=== PATIENT | female | born 1940 | race Caucasian/White ===

== ENCOUNTER 2018-02-03 14:44 | Inpatient (IN) | payer MEDICARE ==
[~2018-02-03] VITALS: Ht 154.9 cm; Wt 45.4 kg
[2018-02-03 14:45] VITALS: BP 111/66
[2018-02-03] MEDS ORDERED: MAGOX 400400 MG PO (14:52)
[2018-02-03] MEDS ORDERED: COLESTID1 GM PO (14:52)
[2018-02-03] MEDS ORDERED: BONE HEALTH (14:52)
[2018-02-03] MEDS ORDERED: BACTRIM DS TAB1 EACH PO (14:53)
[2018-02-03] MEDS ORDERED: AMOXICILLIN 50500 MG PO (14:53)
[2018-02-03] MEDS ORDERED: NORVASC5 MG PO (14:53)
[2018-02-03] MEDS ORDERED: COUMADIN 4 MG TA4 M1 PO (14:54)
[2018-02-03] MEDS ORDERED: LASIX 20 MG TAB20 MG PO (14:54)
[2018-02-03] MEDS ORDERED: DOXYCYCLINE 10100 MG PO (14:54)
[2018-02-03] MEDS ORDERED: CARVEDILOL6.25 M1 PO (14:55)
[2018-02-03] MEDS ORDERED: COUMADIN 3 MG TA3 M1 PO (14:55)
[2018-02-03] MEDS ORDERED: ZESTRIL5 MG PO (14:55)
[2018-02-03 15:07] LABS: ABSOLUTE EOSINOPHILS 0.1 thou/uL (0.0-0.7); ABSOLUTE LYMPHOCYTES 1.9 thou/uL (0.8-5.3); ABSOLUTE MONOCYTES 0.4 thou/uL (0.0-1.2); ABSOLUTE NEUTROPHILS 4.3 thou/uL (1.6-8.1); BASOPHILS 0.4 %; EOSINOPHILS 1.9 %; HEMATOCRIT 32.4 % (37.0-47.0); HEMOGLOBIN 10.3 gm/dL (12.0-15.0); LYMPHOCYTES 27.8 %; MCHC 31.8 g/dL (28.0-37.0); MCV 88.2 fL (80.0-100.0); MPV 8.2 fl. (7.2-11.1); NUCLEATED RBCS 0 /100WBC; PLATELET COUNT* 274 thou/uL (150-400); POLYS 63.9 %; RBC 3.67 mil/uL (4.20-5.00); RDW-CV 17.4 % (10.5-14.5); WBC 6.7 thou/uL (4.0-11.0)
--- NOTE | 2018-02-03 15:08 | NUR ---
INSULIN PUMP AND PT'S HOME MEDS TAKEN TO PHARMACY
[2018-02-03 15:13] LABS: ANION GAP 12 mmol/L (7-16); BUN 39 mg/dL (7-18); CALCIUM 8.9 mg/dL (8.5-10.1); CHLORIDE 107 mmol/L (98-107); CO2 22 mmol/L (21-32); CREATININE 1.7 mg/dL (0.6-1.3); GLUCOSE 119 mg/dL (70-99); POTASSIUM 4.7 mmol/L (3.5-5.1); SODIUM 141 mmol/L (136-145)
[2018-02-03 15:14] LABS: APTT 30.4 Seconds (25.0-31.3); INR 1.8; PROTIME 17.1 Seconds (9.20-11.50)
--- NOTE | 2018-02-03 15:30 | NUR ---
DR. PANDYA IN PT'S ROOM
[2018-02-03 15:35] LABS: ALBUMIN 3.2 g/dL (3.4-5.0); ALKALINE PHOSPHATASE 114 U/L (46-116); CK-MB MASS 0.7 ng/mL (<0.5-3.6); NT-PRO BRAIN NAT PEPTIDE 1378 pg/mL (<300); SGOT 17 U/L (15-37); SGPT 21 U/L (30-65); TOTAL BILIRUBIN 0.2 mg/dL (<0.1-1.0); TOTAL PROTEIN 8.3 g/dL (6.4-8.2); TROPONIN-I LEVEL <0.06 ng/mL (<0.06)
--- NOTE | 2018-02-03 15:42 | NUR ---
PT'S HOME MEDS AND INSULIN PUMP GIVEN TO PHARMACY
--- NOTE | 2018-02-03 16:43 | EKG ---
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
[2018-02-03 17:24] VITALS: BP 169/52
[2018-02-03 18:27] LABS: URINE BILIRUBIN NEGATIVE (Negative); URINE BLOOD NEGATIVE (Negative); URINE CLARITY CLEAR; URINE COLOR YELLOW; URINE GLUCOSE-RANDOM 3+ (Negative); URINE KETONES NEGATIVE (Negative); URINE LEUKOCYTES-REFLEX NEGATIVE (Negative); URINE NITRITE-REFLEX NEGATIVE (Negative); URINE PROTEIN NEGATIVE (Negative); URINE SPECIFIC GRAVITY <= 1.005 (1.005-1.030); URINE UROBILINOGEN 0.2 E.U./dl (0.2-1.0)
[2018-02-03 18:38] VITALS: BP 138/51
--- NOTE | 2018-02-03 19:17 | NUR ---
RECEIVED REPORT FROM ER NURSE AND ASSUMED CARE AT 1730. VSS. CARDIAC MONITORING IN PLACE. A&O X4, IV IN L AC INFILTRATED UPON ARRIVAL. FLUIDS STOPPED AND IV REMOVED. BED IN LOWEST POSITION, BED LOCKED, CALL LIGHT WITHIN REACH. PT ON Q1 HOUR ACCU CHECKS. MEDICATIONS IN PHARMACY, CAN TAKE HOME WITH HIM. PT SEES WOUND CLINIC, DRESSED WOUND R INNER THIGH, WAS DRESSED AT WOUND APPT TODAY 02/03/18. PT ON RA, UP SBA TO BATHROOM. INCONT/URGENCY AT TIMES. REPORT GIVEN TO EVENING SHIFT
--- NOTE | 2018-02-03 19:47 | NUR ---
THIS NURSE AGREES WITH ALL CHARTING AND DOCUMENTATION COMPLETED BY SANTHOSH PENNY RN THIS SHIFT.
[2018-02-03 20:00] VITALS: BP 120/47
[2018-02-04] VITALS (7 sets, daily range): BP systolic 105–162; BP diastolic 34–58
--- NOTE | 2018-02-04 02:14 | NUR ---
ASSUMED CARE OF PT AT 1900. PT IS ALERT AND ORIENTED. VSS. PERRLA. NO COMPLAINTS OF PAIN. PT IS IN SINUS RYTHM ON THE TELEMETRY. PT IS RESTING COMFORTABLY IN BED. RESPIRATIONS ARE EVEN AND NONLABORED. WILL CONTINUE TO MONITOR PT.
[2018-02-04 04:06] LABS: GLYCOHEMOGLOBIN (HGB A1C) 10.4 % (4.8-5.6)
[2018-02-04 04:56] LABS: ABSOLUTE EOSINOPHILS 0.1 thou/uL (0.0-0.7); ABSOLUTE LYMPHOCYTES 1.9 thou/uL (0.8-5.3); ABSOLUTE MONOCYTES 0.6 thou/uL (0.0-1.2); ABSOLUTE NEUTROPHILS 2.3 thou/uL (1.6-8.1); BASOPHILS 0.4 %; EOSINOPHILS 2.4 %; HEMATOCRIT 25.9 % (37.0-47.0); HEMOGLOBIN 8.5 gm/dL (12.0-15.0); MCH 28.6 pg (26.0-34.0); MCHC 32.7 g/dL (28.0-37.0); MCV 87.4 fL (80.0-100.0); MONOCYTES 11.9 %; MPV 8.5 fl. (7.2-11.1); NUCLEATED RBCS 0 /100WBC; PLATELET COUNT* 232 thou/uL (150-400); POLYS 46.3 %; RBC 2.96 mil/uL (4.20-5.00); RDW-CV 17.7 % (10.5-14.5)
[2018-02-04 05:02] LABS: INR 2.1
[2018-02-04 05:09] LABS: CALCIUM 8.1 mg/dL (8.5-10.1); CREATININE 1.7 mg/dL (0.6-1.3); POTASSIUM 4.3 mmol/L (3.5-5.1)
--- NOTE | 2018-02-04 10:58 | NUR ---
ASSUMED CARE OF PATIENT AFTER REPORT THIS MORNING. PATIENT AWAKE, ALERT, AND ORIENTED APPROPRIATELY. PHYSICAL ASSESSMENT COMPLETED AND CHARTED. NO COMPLAINTS OF PAIN. VITAL SIGNS STABLE, BLOOD PRESSURE LOW. OXYGEN SATURATION WITHIN NORMAL LIMITS ON ROOM AIR. GIVEN SCHEDULED MEDICATIONS EXCEPT BLOOD PRESSURE MEDS, SEE EMAR FOR DOCUMENTATION. TRANSFERS AND AMBULATES WITH ASSISTANCE FROM STAFF. USES CALL LIGHT APPROPRIATELY. DENIES NEEDS AT THIS TIME. CALL LIGHT WITHIN REACH. NURSING WILL CONTINUE TO MONITOR.
--- NOTE | 2018-02-04 12:10 | NUR ---
MET WITH PT TO DISCUSS HOME SITUATION/DC PLANNING. PT LIVES WITH SPOUSE. STATES SHE NORMALLY MANAGES WELL, USES [employer]ALK[employer] AND HAS HH WITH [facility] FOR HER 'WOUND CARE'. SHE STATES SHE HAS A NEW INSULIN PUMP AND HAS FOR ABOUT [address] WHYTE (SP?) AT [place], THINKS SHE MAY HAVE 'HIT' SOMETHING ON IT. FEELS BETTER TODAY. PT IS ABLE TO DO HER OWN ADLS AND ASSIST WITH HOUSEHOLD DUTIES. SPOUSE IS HELPFUL TO HER AND ASSISTS NEEDED. PT PLANS TO [place] [facility]. WILL FOLLOW [facility] [phone] FAX [phone]
--- NOTE | 2018-02-04 13:55 | NUR ---
OBTAINED PHOTOGRAPH OF WOUND TO RIGHT GROIN FROM WOUND CENTER. PAPERWORK ON CHART.
[2018-02-04] MEDS ORDERED: ASPIR 8181 MG PO (17:48)
--- NOTE | 2018-02-04 17:54 | NUR ---
PATIENT REMAINS ALERT AND ORIENTED APPROPRIATELY. DENIES NEEDS AT THIS TIME. CALL LIGHT WITHIN REACH. NURSING WILL CONTINUE TO MONITOR.
[2018-02-05] VITALS: BP 154/46
--- NOTE | 2018-02-05 02:21 | NUR ---
TOOK PT INTO CARE AT 1930. PT HAS STAYED THE NIGHT WITH PT IN ANTICIPATION FOR D/C TOMORROW. A & O X 4, ABLE TO MAKE NEEDS KNOWN, UP WITH ASSIST, IV IN RIGHT WRIST SL. NO C/O PAIN YET C/O ITCHING AND GAVE BENEDRYL WITH POSSITIVE RESULTS. ASSESSMENT COMPLETED CHARTED. WILL CONTINUE WITH PLAN OF CARE.
[2018-02-05 04:00] VITALS: BP 154/46
[2018-02-05 05:54] LABS: INR 2.1; PROTIME 20.7 Seconds (9.20-11.50)
[2018-02-05 08:00] VITALS: BP 187/72
[2018-02-05 11:38] VITALS: BP 153/40
[2018-02-05 17:07] VITALS: BP 146/51
--- NOTE | 2018-02-05 19:04 | NUR ---
RECEIVED REPORT. ASSUMED CARE OF PT AROUND 0730. VSS, O2 SAT 98% ON RA. RATE SUPERVISOR IN PLACE TRACING SR, WITH NO CHANGES THIS SHIFT. AM ASSESSMENT AND VITALS COMPLETED CHARTED. IV INTACT AND SALINE LOCKED. PT HAS DENIED PAIN THROUGHOUT THE SHIFT. PT EATING AND DRINKING WITHOUT ISSUE. PT INCONTINENT AND WEARING BRIEF. PT HAS CHANGED BRIEF OFTEN THROUGHOUT THE SHIFT AND STATES "I'VE BEEN URINATING MORE THAN USUAL TODAY". AT BEDSIDE THROUGHOUT SHIFT. PT SAT UP IN BEDSIDE CHAIR FOR MEALS TODAY, STANDBY ASSIST. PT CURRENTLY RESTING IN BED. FALL PRECAUTIONS ARE IN PLACE. CALL LIGHT IS WITHIN REACH, HOURLY ROUNDING PERFORMED. ALL NEEDS MET AT THIS TIME.
[2018-02-05 20:45] VITALS: BP 138/51
[2018-02-06] VITALS: BP 116/42
--- NOTE | 2018-02-06 01:50 | NUR ---
TOOK PT AT 1930. ASSESSMENT COMPLETED CHARTED. NO C/O PAIN. PT C/O ITCHING AT TIMES. WAS UPSET THAT SHE DIDNT GET TO GO HOME TODAY. PT UP WITH STANDBY, STEADY GAIT. A & O X 4, ABLE TO MAKE NEEDS KNOWN, CALL LIGHT W/I REACH. SR ON MONITOR. BLOOD SUGARS STEADY. WILL CONTINUE WITH PLAN OF CARE.
[2018-02-06 04:00] VITALS: BP 111/43
[2018-02-06 05:24] LABS: INR 1.8; PROTIME 17.6 Seconds (9.20-11.50)
[2018-02-06 08:00] VITALS: BP 140/50
--- NOTE | 2018-02-06 11:38 | NUR ---
ASSUMED CARE OF PATIENT THIS AM AT 0730. PATIENT IS ALERT AND ORIENTED X 3 TO 4. SHE DENIES PAIN OR DISCOMFORT THIS AM. PATIENT IS ANXIOUS FOR DISCHARGE. PATIENT'S SON IN LAW IN TO SEE PATIENT. HE WAS VOICING CONCERNS ABOUT PATIENT AND HER IN REGARDS TO THEIR DIMINISHED COGNITIVE ABILITIES. HE WOULD LIKE TO CONFER WITH ADMITTING DR TO PROVIDE POSSIBLE HOME HEALTH FOR PATIENT. PATIENT HAS BEEN ASSISTED WITH ADLS THROUGHOUT THE DAY. NO FALLS OR INJURY. CALL LIGHT REMAINS IN REACH. TELE SHOWS SR.
[2018-02-06 12:25] VITALS: BP 163/51
[2018-02-06] MEDS ORDERED: PROTONIX40 M1 PO (14:46)
== END 2018-02-06 15:15 | disposition home health service (06) | DRG 682 ==
LOC: M.ERS 14:44 → M.2W 15:26 → M.TBA-ER 15:26 → M.2W 17:31
PROVIDERS: Family Medicine; ADMIT Internal Medicine
DX: N17.9 Acute kidney failure, unspecified (principal); G93.41 Metabolic encephalopathy; E11.649 Type 2 diabetes mellitus with hypoglycemia without coma; N18.9 Chronic kidney disease, unspecified; I12.9 Hypertensive chronic kidney disease with stage 1 through stage 4 chronic kidney disease, or unspecified chronic kidney disease; E11.22 Type 2 diabetes mellitus with diabetic chronic kidney disease; F03.90 Unspecified dementia, unspecified severity, without behavioral disturbance, psychotic disturbance, mood disturbance, and anxiety; K21.9 Gastro-esophageal reflux disease without esophagitis; Z90.49 Acquired absence of other specified parts of digestive tract; Z86.73 Personal history of transient ischemic attack (TIA), and cerebral infarction without residual deficits; Z90.710 Acquired absence of both cervix and uterus; Z79.01 Long term (current) use of anticoagulants; Z79.4 Long term (current) use of insulin; Z79.899 Other long term (current) drug therapy; Z91.040 Latex allergy status